=== PATIENT | male | born 1980 | race Caucasian/White ===

== ENCOUNTER 2019-01-22 07:28 | Day surgery (SDC) | payer BC ==
[2019-01-22] VITALS (8 sets, daily range): BP systolic 100–110; BP diastolic 55–63
[~2019-01-22] VITALS: Ht 182.9 cm; Wt 73.9 kg
--- NOTE | 2019-01-22 06:52 | Anethesia Preoperative Eval ---
Anesthesia Pre-op PMH/ROS General Date of Evaluation: Jan 22, 2019 Time of Evaluation: 06:50 Anesthesiologist: rose ASA Score: ASA 2 Mallampati Score Class I : Soft palate, uvula, fauces, pillars visible Class II: Soft palate, uvula, fauces visible Class III: Soft palate, base of uvula visible Class IV: Only hard plate visible Mallampati Classification: Class II Surgeon: moi Diagnosis: crohn's disease Surgical Procedure: egd/colonoscopy Anesthesia History: none Social History: smoking - nonsmoker Family History: no anesthesia problems Allergies: Coded Allergies: PEANUT (Verified Allergy, Severe, "throat closes up", 01/22/19) Cat Dander (Verified Allergy, Intermediate, sneezing; watery eyes, 01/22/19) NO KNOWN ALLERGIES (Verified Allergy, Unknown, 07/28/15) Medications: see eMAR Patient NPO?: Yes Past Medical History Gastrointestinal/Genitourinary: Reports: other - crohn's disease, hematochizia PSxH Narrative: tonsillectomy, septoplasty, left knee surgery Anesthesia Pre-op Phys. Exam Physician Exam Last Vital Signs Date Time Temp Pulse Resp B/P (MAP) Pulse Ox O2 Delivery O2 Flow Rate FiO2 01/22/19 08:02 97.7 56 20 100/63 98 Room Air Constitutional: NAD Neurologic: CN 2-12 intact Cardiovascular: RRR Respiratory: CTA Gastrointestinal: S/NT/ND Airway Exam Mallampati Score: Class II MO: limited Neck: flexible TMD: 2fb ROM: limited Anesthesia Pre-op A/P Risk Assessment & Plan Assessment: asa2 Plan: mac Status Change Before Surgery: No Pre-Antibiotics Drug: Genesis Marie MD Jan 22, 2019 06:52
[~2019-01-22 07:28] MED LIST: Atropine Inj 1mg/10ml Syr IV PRN; DiphenhydrAMINE 50mg/ml Inj IVP PRN; LR 1000ml 1,000 ML IVLG SCH; Midazolam 2mg/2ml Inj IVP PRN; NKM; fentaNYL 100 mcg/2 mL IV PRN
[2019-01-22] MEDS ORDERED: Glycopyrrolate 0.2mg/ml 1ml Vial ONE (08:00)
[2019-01-22] MEDS ORDERED: Glucagon 1mg Inj ONE (08:00)
[2019-01-22] MEDS ORDERED: Propofol 200mg/20ml IV ONE (08:00)
[2019-01-22] MEDS ORDERED: LR 1000ml ONE (08:00)
[2019-01-22] MEDS ORDERED: Lidocaine 1% MPF 10mg/ml 5ml ONE (08:00)
[2019-01-22] MEDS ORDERED: Atropine Sulfate 0.4mg/ml inj ONE (08:00)
[2019-01-22] MEDS ORDERED: LR 1000ml 1,000 ML IVLG SCH (08:09)
--- NOTE | 2019-01-22 08:33 | Short Stay Surgery H&P ---
History of Present Illness History of Present Illness Chief Complaint please see H&P HPI Iftikhar Pittman is a 38 year old male who was admitted on for Crohn's Disease Patient History Allergies: Coded Allergies: PEANUT (Verified Allergy, Severe, "throat closes up", 01/22/19) Cat Dander (Verified Allergy, Intermediate, sneezing; watery eyes, 01/22/19) NO KNOWN ALLERGIES (Verified Allergy, Unknown, 07/28/15) Medication History Scheduled No Known Medications* (NKM - No Known Medications*), 0 ., (Reported) Physical Exam Vital Signs Last Vital Signs Date Time Temp Pulse Resp B/P (MAP) Pulse Ox O2 Delivery O2 Flow Rate FiO2 01/22/19 08:02 97.7 56 20 100/63 98 Room Air Plan Attestation Are the patient's medical conditions optimized for surgery? Samir Mondragon MD Jan 22, 2019 08:32
--- NOTE | 2019-01-22 08:33 | Pre-Procedure Note/Attestation ---
Pre-Procedure Note/Attestation Complete Prior to Procedure Planned Procedure: not applicable Procedure Narrative: esophagogastroduodenoscopy colon Indications for Procedure Pre-Operative Diagnosis: crohns BRB Attestation I attest that I discussed the nature of the procedure; its benefits; risks and complications; and alternatives (and the risks and benefits of such alternatives ), prior to the procedure, with the patient (or the patient's legal risk control field representative). I attest that, if there was a reasonable possibility of needing a blood transfusion, the patient (or the patient's legal risk control field representative) was given the [facility] standardized written summary, pursuant to the [employer] [place] Blood Safety Act ([place] Health and Safety Code # 1645, as amended). I attest that I re-evaluated the patient just prior to the surgery and that there has been no change in the patient's H&P, except as documented below: Samir Mondragon MD Jan 22, 2019 08:33
[2019-01-22] MEDS ORDERED: Glucagon 1mg Inj IV ONE (09:15)
--- NOTE | 2019-01-22 10:13 | Immediate Post-Op Evaluation ---
Immediate Post-Op Evalulation Immediate Post-Op Evalulation Procedure: egd/colonoscopy/bx Date of Evaluation: Jan 22, 2019 Time of Evaluation: 10:12 IV Fluids: 725 ml lr Blood Products: none Estimated Blood Loss: negligible Blood Pressure Systolic: 105 Blood Pressure Diastolic: 69 Pulse Rate: 66 Respiratory Rate: 18 O2 Sat by Pulse Oximetry: 100 Temperature (Fahrenheit): 98.3 Pain Score (1-10): 0 Nausea: No Vomiting: No Complications none Patient Status: awake, reacts, patent Hydration Status: adequate Drug: Genesis Marie MD Jan 22, 2019 10:13
--- NOTE | 2019-01-22 10:14 | 48 Hour Post Anesthesia Eval ---
Post Anesthesia Evaluation Procedure: egd/colonoscopy/bx Date of Evaluation: Jan 22, 2019 Time of Evaluation: 10:14 Blood Pressure Systolic: 104 0: 66 Pulse Rate: 66 Respiratory Rate: 18 Temperature (Fahrenheit): 98.3 O2 Sat by Pulse Oximetry: 100 Airway: patent Nausea: No Vomiting: No Pain Intensity: 0 Hydration Status: adequate Cardiopulmonary Status: stable Mental Status/LOC: patient returned to baseline Post-Anesthesia Complications: none Follow-up care needed: N/A Genesis Carballo MD Jan 22, 2019 10:14
--- NOTE | 2019-01-22 23:00 | Operative Note - Dictated ---
DATE OF OPERATION: 01/22/2019 PROCEDURE: Upper gastrointestinal endoscopy with biopsy as well as colonoscopy with biopsy. SURGEON: Samir Mondragon M.D. ANESTHESIA: Please see the separate anesthesiologist notes for details. PRE-ENDOSCOPIC DIAGNOSES: 1. Hematochezia. 2. History of Crohn's disease. POST-ENDOSCOPIC DIAGNOSES: 1. Thickened erythematous single fold in the antrum of the stomach of unclear significance, status post biopsy. 2. Patchy and mildly erosive colitis seen in the sigmoid colon as well as the rectum, status post biopsy. DESCRIPTION OF PROCEDURE: The procedure, its risks, indications, alternatives, and possible complications were explained to the patient and an informed consent was obtained. The patient was then sedated in the left lateral decubitus position and a diagnostic upper endoscope was introduced through the oropharynx and advanced to the duodenum. The endoscope was then gradually withdrawn and the mucosa was examined carefully. Examination of the upper gastrointestinal mucosa revealed a single erythematous mucosal fold in the antrum of stomach of unclear significance. This was biopsied. Random biopsies up to duodenum was also sent to pathology for review. The endoscope was then removed and the rectal exam was done. The colonoscope was introduced in the rectum and advanced to 20 cm into the terminal ileum. The colonoscope was then gradually withdrawn and the mucosa was examined carefully. Examination of the terminal ileum mucosa did not reveal any evidence of ulcerations, erythema, or suggestions of an inflammatory bowel disease. The proximal colon including the ascending colon, transverse colon, and much of the descending colon appeared normal. In the sigmoid colon, however, there was patchy mildly erosive inflammatory changes in the mucosa as well as in the rectum suggestive of distal colitis. Random biopsies of the terminal ileum, ascending colon, transverse colon, descending colon, sigmoid colon, and rectum were all sent to pathology for review. The colonoscope was removed and the patient was sent to recovery in good condition. COMPLICATIONS: None. ASSESSMENT: This examination was notable for mild distal colitis, which in this patient is understood to be Crohn's colitis. The pathology will be evaluated and the patient will be counseled accordingly. RECOMMENDATIONS: 1. Continue current management. 2. Follow up biopsy results. 3. Outpatient followup. Samir Mondragon M.D. DR: LOVE JOB#: [id number] CC:
--- NOTE | 2019-01-23 22:43 | Endoscopy Procedure Note ---
Endoscopy Procedure Note General Indication for Procedure: CD Operative Findings/Diagnosis: see dict Specimen: yes Pt Tolerated Procedure Well: Yes Estimated Blood Loss: none Anesthesia Anesthesiologist: Elijah perry Anesthesia: MAC Inserted Devices Implant(s) used?: No GI Core Measures 50 yrs or older w/o bx or poly: Not Applicable 10yrs. F/U recommended: Not Applicable If not recommended, why?: Samir Mondragon MD Jan 23, 2019 22:43
--- NOTE | 2019-01-23 22:44 | Brief Operative Note ---
Immediate Post Operative Note Operative Note Pre-op Diagnosis: crohns BRB Procedure: E/C Post-op Diagnosis: 1. Thickened erythematous single fold in the antrum of the stomach of unclear significance, status post biopsy. 2. Patchy and mildly erosive colitis seen in the sigmoid colon as well as the rectum, status post biopsy. Surgeon: moi Anesthesiologist: margarito perry Specimen: yes Complications: none Fluids: per anesthesia Implant(s) used?: No Samir Mondragon MD Jan 23, 2019 22:43
== END 2019-01-22 11:25 | disposition home or self-care (01) ==
LOC: GAS 07:28
DX: K50.90 Crohn's disease, unspecified, without complications (principal); K92.1 Melena; K52.9 Noninfective gastroenteritis and colitis, unspecified; Z91.010 Allergy to peanuts; Z91.048 Other nonmedicinal substance allergy status; K29.50 Unspecified chronic gastritis without bleeding
CPT/HCPCS: 43239; 45380; J0461; J1610; J2704; 94003; 94150